=== PATIENT | male | born 1980 | race Two or more races ===

== ENCOUNTER 2017-02-04 22:26 | Emergency (ER) | payer SELFPAY ==
[~2017-02-04] VITALS: Ht 167.6 cm; Wt 77.2 kg
[2017-02-04 22:30] VITALS: BP 133/88
[2017-02-04] MEDS ORDERED: IBUPROFEN 200 MG TABLET ONE (22:53)
[2017-02-04] MEDS ORDERED: IBUPROFEN 200 MG TABLET PO ONE (23:00)
== END 2017-02-05 00:34 | disposition home or self-care (01) ==
LOC: ED 23:14
DX: S93.491A Sprain of other ligament of right ankle, initial encounter (principal); S93.431A Sprain of tibiofibular ligament of right ankle, initial encounter; W19.XXXA Unspecified fall, initial encounter; Y93.01 Activity, walking, marching and hiking; Y92.89 Other specified places as the place of occurrence of the external cause; Y99.8 Other external cause status
CPT/HCPCS: 99284